=== PATIENT | male | born 1960 | race Caucasian/White ===

== ENCOUNTER 2022-07-30 13:24 | Emergency (ER) | payer MEDICARE, MEDICAID ==
[~2022-07-30] VITALS: Ht 188 cm; Wt 100.0 kg
[~2022-07-30 13:24] MED LIST: LISI-222 PO; METF500T PO
[2022-07-30 13:32] VITALS: BP 143/86
== END 2022-07-30 14:54 | disposition home or self-care (01) ==
LOC: ER 13:25
DX: F15.10 Other stimulant abuse, uncomplicated; I10 Essential (primary) hypertension; E11.9 Type 2 diabetes mellitus without complications
CPT/HCPCS: 82948; 99283

== ENCOUNTER 2023-02-08 20:27 | Inpatient (IN) | payer MEDICARE, MEDICAID ==
[~2023-02-08] VITALS: Ht 188 cm; Wt 100.0 kg
[2023-02-08] MEDS ORDERED: albuterol 2.5 MG/3 ML nebule NEB ONE ×2 (20:40→21:00)
[2023-02-08] MEDS ORDERED: normal saline 1000ml 1,000 ML IV ONE ×3 (20:40)
[2023-02-08] MEDS ORDERED: methylPREDNISolone sod succ 125mg/2ml vial IV ONE (21:00)
[2023-02-08 21:05] LABS: ABG BASE EXCESS -4.6 mmol/L (-2.0-2.0); ABG HCO3 15.6 mmol/L (22.0-26.0); ABG OXYGEN SATURATION 97.2 % (94-97); ABG PO2 (T) 89.2 mmHg (75.0-100.0); FCOHb 2.9 % (0.0-3.9); FMetHb 0.2 % (0.0-1.5); FO2Hb 94.2 % (94-97); PATIENT TEMPERATURE 36.7; TOTAL HEMOGLOBIN 11.6 G/dl (14.0-17.9)
[2023-02-08] MEDS ORDERED: azithromycin/NS 500mg/250ml 250 ML IV ONE (21:05)
[2023-02-08] MEDS ORDERED: CefTRIAXone 2gm/D5W 50ml BAG 50 ML IV ONE (21:05)
[2023-02-08] MEDS ORDERED: insulin Lispro (HumaLOG) vial - multi-dose SQ STA (21:10)
[2023-02-08 21:11] LABS: BASOPHILS % (AUTO) 0.1 % (0-1); EOSINOPHILS # (AUTO) 0.2 X10'3 (0-0.9); EOSINOPHILS % (AUTO) 0.8 % (0-6); HEMATOCRIT 35.6 % (42.0-52.0); LYMPHOCYTES # (AUTO) 1.6 X10'3 (1.1-4.8); LYMPHOCYTES % (AUTO) 7.4 % (21-51); MEAN CORPUSCULAR HEMOGLOBIN 31.7 PG (27.0-31.0); MEAN CORPUSCULAR HGB CONC 33.6 g/dL (33.0-36.5); MEAN CORPUSCULAR VOLUME 94.3 FL (78-98); MEAN PLATELET VOLUME 7.6 FL (7.4-10.4); MONOCYTES # (AUTO) 1.4 X10'3 (0-0.9); MONOCYTES % (AUTO) 6.4 % (2-12); NEUTROPHILS # (AUTO) 18.8 X10'3 (1.8-7.7); NEUTROPHILS % (AUTO) 85.3 % (42-75); PLATELET COUNT 286 X10'3 (140-440); RED BLOOD COUNT 3.78 X10'6 (4.70-6.10); RED CELL DISTRIBUTION WIDTH 13.9 % (11.5-14.5)
[2023-02-08 21:26] LABS: ALANINE AMINOTRANSFERASE 21 U/L (12-78); ALBUMIN 3.1 G/DL (3.4-5.0); ALBUMIN/GLOBULIN RATIO 1.1 (1.1-1.5); ALKALINE PHOSPHATASE 91 IU/L (46-116); ANION GAP 11 (8-16); ASPARTATE AMINO TRANSFERASE 9 U/L (10-37); BILIRUBIN,TOTAL 0.8 MG/DL (0.1-1.0); BLOOD UREA NITROGEN 31 MG/DL (7-18); CALCIUM 8.2 MG/DL (8.5-10.1); CHLORIDE 96 MMOL/L (99-107); CREATININE 1.72 MG/DL (0.60-1.10); GLUCOSE 331 MG/DL (70-104); LIPASE < 50 U/L (73-393); POTASSIUM 4.3 MMOL/L (3.5-5.1); SODIUM 129 MMOL/L (135-145); TOTAL CARBON DIOXIDE 22.3 MMOL/L (24-32); eGFR 41 ML/MIN
[2023-02-08 21:28] LABS: CLARITY,URINE SLIGHTLY CLOUDY (Clear); COLOR,URINE YELLOW (Yellow); GLUCOSE, URINE >=1000 mg/dl (Neg); KETONES,URINE NEGATIVE (Neg); LEUKOCYTE ESTERASE ,URINE SMALL (Neg); NITRITES, URINE NEGATIVE (Neg); OCCULT BLOOD,URINE TRACE-INTACT (Neg); PH,URINE 5.5 (4.8-8.0); PROTEIN,URINE NEGATIVE (Neg); UROBILINOGEN,URINE 0.2 E.U/dL (0.2-1.0)
[2023-02-08 21:28] LABS: ETHANOL < 0.010 GM/DL (0.0-0.010)
[2023-02-08 21:34] LABS: UA COLLECTION TYPE CLN CATCH MIDSTREAM
[2023-02-08 21:39] LABS: BACTERIA,URINE 2+ /HPF (Neg); SQUAMOUS EPITHELIAL CELL,UR FEW /LPF (FEW); TRANSITIONAL EPI CELLS,URINE FEW /HPF; WBC CLUMPS,URINE MODERATE /HPF (NEGATIVE); WBC,URINE 30-50 /HPF (0-4); YEAST FEW /HPF (NEGATIVE)
[2023-02-08 21:43] LABS: URINE AMPHETAMINE SCREEN POSITIVE (Neg); URINE BARBITUATE SCREEN NEGATIVE (Neg); URINE BENZODIAZEPINES SCREEN NEGATIVE (Neg); URINE CANNABINOID SCREEN POSITIVE (Neg); URINE COCAINE SCREEN NEGATIVE (Neg); URINE METHADONE SCREEN NEGATIVE (Neg); URINE OPIATE SCREEN NEGATIVE (Neg); URINE PHENCYCLIDINE SCREEN NEGATIVE (Neg)
--- NOTE | 2023-02-08 21:53 | NUR ---
PTS ALEJANDRA [phone]
[2023-02-09] MEDS ORDERED: metoclopramide 5 mg/ml inj IV PRN
[2023-02-09] MEDS ORDERED: HYDROcodone/acetaminophen 5mg/325mg tablet PO PRN
[2023-02-09] MEDS ORDERED: magnesium hydroxide 30ml (MOM) UD suspension PO PRN
[2023-02-09] MEDS ORDERED: bisacodyl 10mg suppository rectal RC PRN
[2023-02-09] MEDS ORDERED: diphenhydrAMINE 25mg capsule PO PRN
[2023-02-09] MEDS ORDERED: mag hydrox/Alum hydrox/simeth 30ml oral suspension PO PRN
[2023-02-09] MEDS ORDERED: ondansetron/PF 4mg/2ml inj IV PRN
[2023-02-09] MEDS ORDERED: diphenhydrAMINE 50 mg/ml inj IV PRN
[2023-02-09] MEDS ORDERED: acetaminophen 325mg tablet PO PRN ×2
[2023-02-09] MEDS ORDERED: morphine 2 MG/ML inj. syringe IV PRN ×2
[2023-02-09] MEDS ORDERED: ondansetron 4mg rapidly disintigrating tab PO PRN
[2023-02-09] MEDS ORDERED: HYDROcodone/acetaminophen 10/325mg tab PO PRN
[2023-02-09] MEDS ORDERED: acetaminophen 650mg rectal suppository RC PRN
[2023-02-09] MEDS ORDERED: dextrose 50%-water 50ml dispensing syringe IV PRN ×2 (00:10)
[2023-02-09] MEDS ORDERED: glucagon, human recombinant 1mg kit SUBCUT PRN (00:10)
[2023-02-09] MEDS ORDERED: MESSAGE TO PHARMACY PO ONE (00:10)
[2023-02-09] MEDS ORDERED: DEXTROSE 15 GM of carb/4 tabs (each vial/BOTTLE has 4 tablets) PO PRN ×2 (00:10)
[2023-02-09] MEDS: normal saline 1000ml 1,000 ML IV SCH ×3 (00:13→17:50)
[2023-02-09 00:40] LABS: APTT 30 SECONDS (22-32)
[2023-02-09 00:52] LABS: D-DIMER 0.37 MG/L FEU (0-0.50)
[2023-02-09 00:56] LABS: HEMOGLOBIN A1C 11.4 % (4.5-6.2)
[2023-02-09 00:58] LABS: CREATINE KINASE 82 U/L (39-308); MAGNESIUM 1.4 MG/DL (1.5-2.4); PHOSPHORUS 2.7 MG/DL (2.3-4.5)
[2023-02-09 07:28] VITALS: BP 134/79
[2023-02-09] MEDS: nicotine 21mg patch - 24 hr TD SCH (07:36)
[2023-02-09] MEDS: pantoprazole 40mg Tablet.DR PO SCH (07:36)
[2023-02-09] MEDS: heparin, porcine 5000 units/ml vial SQ SCH ×2 (07:37→20:00)
[2023-02-09] MEDS: docusate sod 100mg capsule PO SCH ×2 (08:00→20:00)
[2023-02-09] MEDS: CefTRIAXone/D5W-Rocephin 1gm 50 ML IV SCH (08:19)
[2023-02-09] MEDS ORDERED: potassium Cl 20 mEq SR tablet PO PRN ×2 (08:35)
[2023-02-09] MEDS ORDERED: magnesium 4gm in 100ml NS 100 ML IV PRN (08:35)
[2023-02-09] MEDS ORDERED: potassium Cl 40MEQ/1/2NS 520ml 520 ML IV PRN (08:35)
[2023-02-09] MEDS ORDERED: magnesium 2GM in 50ml NS 50 ML IV PRN (08:35)
[2023-02-09 09:10] LABS: CHOL/HDL RATIO 3.8 (0.00-4.99); CHOLESTEROL 146 MG/DL (0-200); HDL CHOLESTEROL 38 MG/DL (35-60); LDL CHOLESTEROL 82 MG/DL (50-100); TRIGLYCERIDES 127 MG/DL (20-135)
[2023-02-09] MEDS: azithromycin/NS 500mg/250ml 250 ML IV SCH (09:23)
[2023-02-09] MEDS: insulin Lispro (HumaLOG) vial - multi-dose SQ SCH ×3 (09:27→19:25)
[2023-02-09 10:00] VITALS: BP 141/80
[2023-02-09] MEDS: magnesium Cl slow-release 64mg tablet PO PRN (13:12)
[2023-02-09] MEDS ORDERED: CHOL20003 PO (13:40)
[2023-02-09] MEDS ORDERED: INSU100V12 SQ (13:40)
[2023-02-09] MEDS ORDERED: UMEC62.5 PO (13:40)
[2023-02-09] MEDS ORDERED: TRAZ-251 PO ×2 (13:40→14:48)
[2023-02-09] MEDS ORDERED: ALBU2.5V10 PO (13:40)
--- NOTE | 2023-02-09 14:13 | NUR ---
DM consult: Per EMR pt with T2DM, current A1c 11.4% with BG 348 mg/dL on admit. Per physician notes pt states he has been without insulin for two days and has been unable to keep his blood sugars below 300. Multiple attempted visits with pt at bedside however pt unavailable. Will f/u at another time for DM education. Pt admit for sepsis, UTI, hyperglycemia, acute renal failure with hyponatremia, acute pneumonitis, and acute amphetamine intoxication. Pt on a CHO controlled diet and eating well, documented with 100% PO intake of first meal. Estimated nutrient needs will not be met even if pt continues with 100% PO intake given restrictive diet order. D/w dietary to send double eggs WB and double meat BIDLD for satiety and to assist with meeting estimated nutrient needs. LBM 02/09 per EMR. Will continue to follow and monitor need for further nutrition intervention. Recommendations: 1) Continue CHO controlled diet 2) Double eggs WB; double meat BIDLD 3) Bowel care per rx 4) Scaled weight this admit; subsequent weekly scaled weights 5) DM education as able, A1c 11.4%, BG 348 mg/dL on admit Addendum: 02/09/23 at [address] Amended: Links added.
[2023-02-09] MEDS ORDERED: FLO0.4C PO (14:48)
[2023-02-09] MEDS ORDERED: ALBU8HFA PO (14:48)
[2023-02-09 18:00] VITALS: BP 113/63
--- NOTE | 2023-02-09 18:29 | NUR ---
pt refused 2 rn skin check. cupola charger notified
--- NOTE | 2023-02-09 18:30 | NUR ---
Patient in room [facility] 4022. I have received report from DARRON CAM and had the opportunity to ask questions and assume patient care.
[2023-02-09] MEDS: K and/or MAG REPLACEMENT MC SCH (20:00)
[2023-02-09] MEDS: traZODone 50mg tablet PO SCH (20:39)
[2023-02-09] MEDS ORDERED: temazepam 15mg capsule PO PRN (21:00)
[2023-02-09] MEDS: insulin glargine (Lantus) pen - multi-dose SQ SCH (21:45)
[2023-02-09 22:00] VITALS: BP 138/72
[2023-02-10] MEDS: normal saline 1000ml 1,000 ML IV SCH ×2 (03:38→15:52)
[2023-02-10 04:40] LABS: BASOPHILS # (AUTO) 0.1 X10'3 (0-0.2); BASOPHILS % (AUTO) 0.3 % (0-1); EOSINOPHILS # (AUTO) 0.2 X10'3 (0-0.9); EOSINOPHILS % (AUTO) 0.9 % (0-6); HEMATOCRIT 32.5 % (42.0-52.0); LYMPHOCYTES # (AUTO) 2.2 X10'3 (1.1-4.8); LYMPHOCYTES % (AUTO) 11.1 % (21-51); MEAN CORPUSCULAR HEMOGLOBIN 31.7 PG (27.0-31.0); MEAN CORPUSCULAR HGB CONC 33.7 g/dL (33.0-36.5); MEAN CORPUSCULAR VOLUME 94.1 FL (78-98); MEAN PLATELET VOLUME 8.4 FL (7.4-10.4); MONOCYTES # (AUTO) 1.2 X10'3 (0-0.9); MONOCYTES % (AUTO) 6.3 % (2-12); NEUTROPHILS % (AUTO) 81.4 % (42-75); PLATELET COUNT 289 X10'3 (140-440); RED BLOOD COUNT 3.45 X10'6 (4.70-6.10); RED CELL DISTRIBUTION WIDTH 14.1 % (11.5-14.5); WHITE BLOOD COUNT 19.6 X10'3 (4.5-11.0)
[2023-02-10 05:02] LABS: ALANINE AMINOTRANSFERASE 55 U/L (12-78); ALBUMIN 2.9 G/DL (3.4-5.0); ALBUMIN/GLOBULIN RATIO 0.9 (1.1-1.5); ALKALINE PHOSPHATASE 90 IU/L (46-116); ANION GAP 8 (8-16); ASPARTATE AMINO TRANSFERASE 19 U/L (10-37); BILIRUBIN,TOTAL 0.3 MG/DL (0.1-1.0); BLOOD UREA NITROGEN 27 MG/DL (7-18); BUN/CREATININE RATIO 24.8 (10.0-20.0); CALCIUM 8.5 MG/DL (8.5-10.1); CHLORIDE 106 MMOL/L (99-107); CHOL/HDL RATIO 3.7 (0.00-4.99); CHOLESTEROL 150 MG/DL (0-200); CREATININE 1.09 MG/DL (0.60-1.10); GLUCOSE 227 MG/DL (70-104); HDL CHOLESTEROL 41 MG/DL (35-60); LDL CHOLESTEROL 81 MG/DL (50-100); MAGNESIUM 1.5 MG/DL (1.5-2.4); PHOSPHORUS 1.9 MG/DL (2.3-4.5); POTASSIUM 4.1 MMOL/L (3.5-5.1); SODIUM 138 MMOL/L (135-145); TOTAL CARBON DIOXIDE 24.5 MMOL/L (24-32); TRIGLYCERIDES 90 MG/DL (20-135); eGFR 69 ML/MIN
[2023-02-10 06:00] VITALS: BP 130/68
--- NOTE | 2023-02-10 06:25 | NUR ---
Problems reprioritized. Patient report given, questions answered & plan of care reviewed with ELIE CAM.
--- NOTE | 2023-02-10 06:39 | NUR ---
Patient in room [facility]TH[facility] 4022. I have received report from Tammy Munoz and had the opportunity to ask questions and assume patient care.
[2023-02-10] MEDS: pantoprazole 40mg Tablet.DR PO SCH (07:30)
[2023-02-10] MEDS: heparin, porcine 5000 units/ml vial SQ SCH ×2 (08:00→20:32)
[2023-02-10] MEDS: docusate sod 100mg capsule PO SCH ×2 (08:00→20:27)
[2023-02-10] MEDS: K and/or MAG REPLACEMENT MC SCH ×2 (08:00→20:00)
[2023-02-10] MEDS: tamsulosin 0.4mg capsule PO SCH ×2 (08:14→20:27)
[2023-02-10] MEDS: CefTRIAXone/D5W-Rocephin 1gm 50 ML IV SCH (08:15)
[2023-02-10] MEDS: lisinopril 10 MG tablet PO SCH (08:15)
[2023-02-10] MEDS: nicotine 21mg patch - 24 hr TD SCH (08:19)
[2023-02-10] MEDS: insulin Lispro (HumaLOG) vial - multi-dose SQ SCH ×3 (08:37→19:07)
[2023-02-10] MEDS: azithromycin/NS 500mg/250ml 250 ML IV SCH (08:39)
[2023-02-10] MEDS ORDERED: ipratropium/albuterol 3ml nebule NEB PRN (08:50)
[2023-02-10 10:00] VITALS: BP 140/86
--- NOTE | 2023-02-10 10:06 | NUR ---
Notified Dr. Canseco of pt's refusal of heparin, protonix and colace.
--- NOTE | 2023-02-10 12:39 | NUR ---
DM consult: Pt seen at bedside for written and verbal DM education. Pt states he has a physician that he sees for DM management however has not seen her in some time. Pt states he takes his DM medications per rx without issues despite inability to recall what the meds are and reports of being without insulin for two days per physician notes. Pt states he checks his blood sugars in the morning and evening with resulting numbers 450-500 mg/dL. Pt expresses desire to improve DM management to bring his A1c down to below 7.0%. All of patient's questions were answered at this time. Pt endorses a good appetite and states he would like to continue with double protein with meals. Pt denies food allergies. Pt reports difficulty chewing d/t missing teeth however declines texture modification. LBM 02/09 per EMR. Pt denies constipation or diarrhea. Pt provided with RD contact information and encouraged to reach out if needed. Will continue to follow. Addendum: 02/10/23 at [address] Amended: Links added.
[2023-02-10] MEDS ORDERED: potassium phosphate inj 30 MMOL in normal saline 500ml IV soln 500 ML IV ONE (14:00)
[2023-02-10 18:00] VITALS: BP 113/58
--- NOTE | 2023-02-10 18:11 | NUR ---
Problems reprioritized. Patient report given, questions answered & plan of care reviewed with
[2023-02-10] MEDS: traZODone 50mg tablet PO SCH (20:34)
[2023-02-10] MEDS: insulin glargine (Lantus) pen - multi-dose SQ SCH (20:51)
[2023-02-11] MEDS ORDERED: guaiFENesin 200mg/20mg codeine phos 10ml UD oral syrup PO PRN (02:05)
[2023-02-11 04:56] LABS: BASOPHILS # (AUTO) 0.1 X10'3 (0-0.2); BASOPHILS % (AUTO) 0.7 % (0-1); EOSINOPHILS # (AUTO) 0.4 X10'3 (0-0.9); EOSINOPHILS % (AUTO) 3.2 % (0-6); HEMATOCRIT 32.6 % (42.0-52.0); HEMOGLOBIN 10.9 g/dl (14.0-17.9); LYMPHOCYTES % (AUTO) 21.9 % (21-51); MEAN CORPUSCULAR HEMOGLOBIN 31.5 PG (27.0-31.0); MEAN CORPUSCULAR HGB CONC 33.5 g/dL (33.0-36.5); MEAN CORPUSCULAR VOLUME 93.8 FL (78-98); MEAN PLATELET VOLUME 8.1 FL (7.4-10.4); MONOCYTES # (AUTO) 0.9 X10'3 (0-0.9); MONOCYTES % (AUTO) 6.3 % (2-12); NEUTROPHILS # (AUTO) 9.2 X10'3 (1.8-7.7); NEUTROPHILS % (AUTO) 67.9 % (42-75); PLATELET COUNT 300 X10'3 (140-440); RED BLOOD COUNT 3.47 X10'6 (4.70-6.10); WHITE BLOOD COUNT 13.5 X10'3 (4.5-11.0)
[2023-02-11 04:59] LABS: ALANINE AMINOTRANSFERASE 45 U/L (12-78); ALBUMIN 2.7 G/DL (3.4-5.0); ALBUMIN/GLOBULIN RATIO 0.8 (1.1-1.5); ALKALINE PHOSPHATASE 82 IU/L (46-116); ANION GAP 9 (8-16); ASPARTATE AMINO TRANSFERASE 16 U/L (10-37); BILIRUBIN,TOTAL 0.3 MG/DL (0.1-1.0); BLOOD UREA NITROGEN 14 MG/DL (7-18); BUN/CREATININE RATIO 15.7 (10.0-20.0); CALCIUM 8.5 MG/DL (8.5-10.1); CHLORIDE 106 MMOL/L (99-107); CREATININE 0.89 MG/DL (0.60-1.10); GLUCOSE 176 MG/DL (70-104); MAGNESIUM 1.4 MG/DL (1.5-2.4); PHOSPHORUS 2.9 MG/DL (2.3-4.5); POTASSIUM 3.6 MMOL/L (3.5-5.1); SODIUM 140 MMOL/L (135-145); TOTAL PROTEIN 5.9 G/DL (6.4-8.2); eGFR 87 ML/MIN
[2023-02-11] MEDS: magnesium Cl slow-release 64mg tablet PO PRN (05:28)
[2023-02-11] MEDS: normal saline 1000ml 1,000 ML IV SCH ×2 (05:29→12:00)
--- NOTE | 2023-02-11 06:22 | NUR ---
AM LABS BACK AND PATIENT'S MAG IS 1.4 FIRST DOSE OF MG REPLMT GIVEN REPORT TO EARLY SHIFT RN
--- NOTE | 2023-02-11 06:55 | NUR ---
Patient in room [facility]TH[facility] 4022. I have received report from SANJEEV CAM and had the opportunity to ask questions and assume patient care.
[2023-02-11 07:55] LABS: TOTAL CELLS COUNTED 100
[2023-02-11 07:56] LABS: PLATELET ESTIMATE NORMAL; POIKILOCYTOSIS FEW
[2023-02-11] MEDS: CefTRIAXone/D5W-Rocephin 1gm 50 ML IV SCH (07:59)
[2023-02-11] MEDS: heparin, porcine 5000 units/ml vial SQ SCH (07:59)
[2023-02-11] MEDS: pantoprazole 40mg Tablet.DR PO SCH (07:59)
[2023-02-11] MEDS: azithromycin/NS 500mg/250ml 250 ML IV SCH (07:59)
[2023-02-11] MEDS: docusate sod 100mg capsule PO SCH (07:59)
[2023-02-11] MEDS: K and/or MAG REPLACEMENT MC SCH (08:00)
[2023-02-11] MEDS: tamsulosin 0.4mg capsule PO SCH (08:00)
[2023-02-11] MEDS: lisinopril 10 MG tablet PO SCH (08:03)
[2023-02-11] MEDS: nicotine 21mg patch - 24 hr TD SCH (08:04)
[2023-02-11] MEDS: insulin Lispro (HumaLOG) vial - multi-dose SQ SCH (09:10)
[2023-02-11] MEDS ORDERED: METF-1203 PO (13:17)
[2023-02-11] MEDS ORDERED: LEVO-65 PO (13:26)
[2023-02-11 14:47] VITALS: BP 113/73
--- NOTE | 2023-02-11 16:57 | NUR ---
PT. IV CANNULA WHOLE AND INTACT UPON REMOVAL, PT EDUCATED ON DIABETES AND FOOT CARE, SMOKING CESSATION, TO FOLLOW UP WITH PRIMARY CARE PROVIDER WITHIN 1 WEEK, AND TO TAKE ANTIBIOTICS UNTIL FULLY GONE. PT. LEFT WITH SPOUSE IN PRIVATE VEHICLE SAFELY.
--- NOTE | 2023-02-11 18:15 | NUR ---
Orientee documentation: I have reviewed all interventions, assessments performed and documented by Jignesh CAM . Orientee Administration: For this medication-pass time frame, all medication were reviewed, dispensed, administered and documented per hospital policy by Jignesh CAM.
[2023-02-12] MEDS ORDERED: azithromycin 250mg tablet PO SCH (08:00)
== END 2023-02-11 15:35 | disposition home or self-care (01) | DRG 871 ==
LOC: ER 20:27 → ED HOLD 02-09 00:07 → ORTHO 4S 02-09 06:50
PROVIDERS: ADMIT Family Medicine; ATTEND Family Medicine
DX: A41.9 Sepsis, unspecified organism (principal); J18.9 Pneumonia, unspecified organism; E87.1 Hypo-osmolality and hyponatremia; N39.0 Urinary tract infection, site not specified; N17.9 Acute kidney failure, unspecified; J44.1 Chronic obstructive pulmonary disease with (acute) exacerbation; J44.0 Chronic obstructive pulmonary disease with (acute) lower respiratory infection; D64.9 Anemia, unspecified; E11.22 Type 2 diabetes mellitus with diabetic chronic kidney disease; E86.1 Hypovolemia; E86.0 Dehydration; F15.129 Other stimulant abuse with intoxication, unspecified; Z20.822 Contact with and (suspected) exposure to COVID-19; E88.09 Other disorders of plasma-protein metabolism, not elsewhere classified; I12.9 Hypertensive chronic kidney disease with stage 1 through stage 4 chronic kidney disease, or unspecified chronic kidney disease; E83.39 Other disorders of phosphorus metabolism; F17.210 Nicotine dependence, cigarettes, uncomplicated; R65.20 Severe sepsis without septic shock; N18.9 Chronic kidney disease, unspecified; K74.60 Unspecified cirrhosis of liver; E11.65 Type 2 diabetes mellitus with hyperglycemia; F12.10 Cannabis abuse, uncomplicated; Z79.899 Other long term (current) drug therapy; Z79.84 Long term (current) use of oral hypoglycemic drugs
CPT/HCPCS: 36415; 36600; 71045; 80053; 80061; 80305; 80320; 81001; 82550; 82803; 82948; 83036; 83605; 83690; 83735; 83880; 84100; 84145; 84153; 84154; 84443; 84484; 85007; 85018; 85025; 85379; 85610; 85730; 87040; 87081; 87088; 87502; 87503; 87811; 94640; 94664; 94760; 99285; G0378; J0456; J0696; J1644; J1815; J2930; J3490; J7030; J7040

== ENCOUNTER 2025-03-25 15:00 | Day surgery (SDC) | payer MEDICARE, MEDICAID ==
[2025-03-25] VITALS (15 sets, daily range): BP systolic 92–153; BP diastolic 46–86; PULSE 70–92; RESP 12–20; TEMP 97.9–98.6; O2SAT 92–99
[~2025-03-25] VITALS: Ht 188 cm; Wt 96.3 kg
[~2025-03-25 15:00] MED LIST changes: +ALBU90AE INH; +ATOR20TA PO; +BUPR-344 PO; +DAPA5TAB PO; +DOXY-243 PO; +ERGO125018 PO; +FLO0.4C PO; +GABA-1405 PO; +HYDR-3965 PO; -LISI-222 PO; +LISI10TA27 PO; -METF500T PO; +MIRT-88 PO; +NICO-687 TOP; +OMEP40CA21 PO; +POLY17PO10 PO; +SEMA1PEN3 SUBCUT; +TRAZ-251 PO; +UMEC62.5 PO; +VENL150T3 PO; +[UNRECOGNIZED DRUG - OTHER] SQ
[2025-03-25] MEDS: ceFAZolin 2,000MG in D5W 50mL IV ONE (16:50)
[2025-03-25] MEDS: VANCOMYCIN/WATER FOR INJ (PEG) 1.5GM/300 ML IVPB IV ONE (16:55)
[2025-03-25] MEDS ORDERED: cloNIDine hcl/PF 100mcg/ml inj ONE (17:09)
[2025-03-25] MEDS ORDERED: HYDROmorphone/PF 0.2 MG/ML SYRINGE IV PRN ×2 (17:20)
[2025-03-25] MEDS ORDERED: hydrALAZINE 20mg/ml inj. IV PRN (17:20)
[2025-03-25] MEDS ORDERED: ondansetron/PF 4mg/2ml inj IV PRN (17:20)
[2025-03-25] MEDS: ringers solution, lacted 1,000 ML IV SCH ×2 (17:20→21:28)
[2025-03-25] MEDS ORDERED: labetalol 20mg/4ml (5mg/ml) syringe IV PRN (17:20)
[2025-03-25] MEDS ORDERED: morphine 4 MG/ML inj SYRINge IV PRN (17:20)
[2025-03-25] MEDS ORDERED: acetaminophen 1,000mg/100ml IV 100 ML IV PRN (17:20)
[2025-03-25] MEDS ORDERED: BUPIVAcaine/PF 2.5mg/ml (0.25%) 10ml vial ONE (17:37)
[2025-03-25] MEDS ORDERED: bacitracin 15gm ointment TP ONE (17:37)
[2025-03-25] MEDS ORDERED: fentaNYL/PF 50MCG/1 ML 2ML syringe ONE (17:48)
[2025-03-25] MEDS ORDERED: midazolam 1 mg/ML 2ml injection ONE (17:49)
[2025-03-25] MEDS ORDERED: vancomycin 1,000mg inj ONE ×2 (18:25→19:38)
[2025-03-25] MEDS ORDERED: ROPIVAcaine 0.5% (5mg/ml) 30ml vial ONE (18:29)
[2025-03-25] MEDS ORDERED: 0.9 % SODIUM CHLORIDE 10 ML VIAL ONE ×3 (18:29)
[2025-03-25] MEDS ORDERED: dexamethasone sod phosphate 4mg/ml inj. ONE (18:30)
[2025-03-25] MEDS ORDERED: LIDOcaine 2% (20mg/ml) 5ml vial ONE (18:30)
[2025-03-25] MEDS ORDERED: propofol inj 20 ML IV ONE (18:30)
--- NOTE | 2025-03-25 21:08 | CONSULTATION REPORT - RESIDENT ---
Consult Providers to CC Resident Creating Document: MARY PRICEFRANKLINSERGE GILMA CC: HAMILTON MORALES MD History of Present Illness Reason for Admit\Complaint: Ankle surgery History of Present Illness Patient is a 64-year-old male with a past medical history of severe ankle osteoarthritis, insulin-dependent type 2 diabetes mellitus, COPD, HTN, Depression, Insomnia, Neuropathy and BPH who was admitted to the hospital for a left ankle reconstruction surgery today. Patient has undergone five surgeries on his left ankle since May of last year by Dr. Bermudez, most recently on 03/18/2025 and today. Patient reports that initial surgery was due to severe osteoarthritis, and he has had several hardware complications since then. Today's surgery was uneventful and the patient is stable postop as well, currently he has no pain. He denies shortness of breath, chest pain, palpitations or any other subjective symptoms. Hospitalist team consulted for further inpatient management. Allergies: Coded Allergies: bee venom protein (honey bee) (Verified Allergy, Severe, 03/17/25) Home Medications Home Medications Active Miralax* (Polyethylene Glycol) 1 Packet Packet 1 Packet PO HS 10 Days Doxycycline Hyclate 100 Mg Tablet.dr 100 Mg PO BID 7 Days Reported Habitrol 21 MG Patch* (Nicotine) 1 Each Patch.td24 1 Patch TOP DAILY Lisinopril 10 Mg Tablet 1 Tab PO DAILY Venlafaxine HCl ER (Venlafaxine HCl) 150 Mg Tab.er.24 1 Tab PO DAILY Bupropion Xl (Bupropion HCl) 300 Mg Tab.er.24h 1 Tab PO DAILY [place] 5/325 MG (Acetaminophen/Hydrocodone Bitart) 5 Mg/325 Mg Tablet 1 Tab PO Q4H PRN Ozempic (Semaglutide) 1 Mg/0.75 Ml (4 Mg/3 Ml) Pen.injctr 0.5 Mg SUBCUT Q7D ON WEDNESDAYS [Long acting insulin] 32 Units SQ DAILY Proair Respiclick (Albuterol Sulfate) 90 Mcg Aer.pow.ba 1-2 Puffs INH Q4HPRN PRN Gabapentin 600 Mg Tablet 1 Tab PO TID Prilosec (Omeprazole) 40 Mg Capsule 1 Cap PO DAILY Vitamin D2 (Ergocalciferol (Vitamin D2)) 1,250 Mcg (71959 Unit) Capsule 1 Cap PO Q7D Mirtazapine 30 Mg Tablet 1 Tab PO HS Farxiga (Dapagliflozin Propanediol) 5 Mg Tablet 1 Tab PO DAILY Lipitor* (Atorvastatin Calcium) 20 Mg Tablet 1 Tablet PO HS Trazodone HCl 50 Mg Tablet 2 Tab PO HS Flomax (Tamsulosin HCl) 0.4 Mg Cap.sr.24h 0.4 Mg PO BID Incruse Ellipta (Umeclidinium [place]) 62.5 Mcg Blst.w.dev 1 Puffs PO DAILY Past Medical History Past Medical History Severe ankle osteoarthritis Insulin-dependent Type 2 diabetes mellitus COPD HTN Depression Insomnia Neuropathy BPH Past Surgical History Surgical History Comment Five podiatric procedures since May Family History Family History: Bladder disorder Sister FH: depression FATHER Past Social History Social History Comment Smoker, last cigarette one-week ago Denies alcohol illicit drug abuse. Past history of amphetamine abuse as per EMR Lives at home with his and son Wheelchair-bound secondary to bilateral severe ankle OA ROS ROS All systems were reviewed and found negative except for pertinent positives mentioned in HPI Exam Vitals: Vital Signs Date Time Temp Pulse Resp B/P (MAP) Pulse Ox O2 Delivery O2 Flow Rate FiO2 03/25/25 20:30 78 12 104/69 (81) 96 Nasal Cannula 2.0 03/25/25 19:47 98.8 General: General: awake, alert oriented to place, time, and person HEENT: No pallor present, no icterus, moist mucous membranes Neck: No masses and tenderness Resp: Unlabored. Prolonged expiratory phase, scattered wheezes throughout Chest: Normal expansion Cardiovascular: Regular Rate and rhythm, normal S1 and S2 without murmur, rub or gallop Abdomen: Soft and nontender, no organomegaly, no guarding and rigidity, bowel sounds present Neuro: No focal weakness in the upper and lower limb muscles, power of the muscles 5/5 bilateral upper and lower extremities, normal reflexes bilaterally. Cranial nerves intact Extremities: Left ankle covered with clean dressing. Good capillary refill. No cyanosis,clubbing or edema Skin: Warm and Dry. No lesions Psych: Normal affect Additional Plan Multiple left ankle reconstruction surgeries POD 0 Severe left ankle osteoarthritis Hemodynamically stable and recovering well from surgery Continue pain control with Dilaudid and morphine DVT prophylaxis with heparin b.i.d. and SCDs Nonweightbearing. PT eval and treat for discharge planning Continue recommendations by Dr. Bermudez Insulin-dependent type 2 diabetes mellitus A1c from 08/13 is 6.8 Started the patient on hyperglycemia/hypoglycemia protocol Maintain blood glucose between 140-180 mg/dL Currently on liquid diet per Dr Bermudez, advance to 75 g carb controlled diet COPD, mild exacerbation Bilateral wheezing noted DuoNebsQ.2h PRN albuterol and q.4scheduled Nicotine use disorder: He has not smoked for one week Nicotine patch in place HTN Hyperlipidemia Continue lisinopril 10 mg daily, atorvastatin 20 mg daily Depression Insomnia Neuropathy Continue bupropion 200 mg daily, mirtazapine 30 mg daily, trazodone 100 mg HS, venlafaxine 150 mg daily BPH Continue Flomax Code Status: Full code DVT prophylaxis: Heparin Analgesia/sedation: Dilaudid/morphine Nutrition: Clear liquids per surgeon, advanced to carb controlled PT: Ordered Prognosis: Guarded Disposition: Continue care in surgical unit. Continue recommendations per ortho Serge Lawton MD Internal Medicine Resident PGY-2 Patient evaluated using HIPPA complaint AV device Agree with the plan as discussed with resident Hamilton Morales MD Date of Service: Mar 25, 2025 Billing Provider: HAMILTON MORALES MD, LEONARDO LUIS Mar 25, 2025 21:08 HAMILTON MORALES MD Mar 26, 2025 01:26
[2025-03-25] MEDS ORDERED: HYDROcodone/acetaminophen 5mg/325mg tablet PO PRN (21:35)
[2025-03-25] MEDS: nicotine 21mg patch - 24 hr TD SCH (21:55)
[2025-03-25] MEDS ORDERED: ipratropium/albuterol 3ml nebule NEB PRN (22:00)
[2025-03-25] MEDS ORDERED: DEXTROSE 15 GM of carb/4 tabs (each vial/BOTTLE has 4 tablets) PO PRN ×2 (22:00)
[2025-03-25] MEDS ORDERED: glucagon, human recombinant 1mg kit SUBCUT PRN (22:00)
[2025-03-25] MEDS ORDERED: dextrose 50%-water 50ml dispensing syringe IV PRN ×2 (22:00)
[2025-03-26] VITALS (7 sets, daily range): BP systolic 64–142; BP diastolic 37–56; PULSE 65–83; RESP 16–21; TEMP 97.2–98.1; O2SAT 93–94
[2025-03-26] MEDS: ceFAZolin/D5W- 1GM premix 50 ML IV SCH (00:20)
[2025-03-26] MEDS: heparin, porcine 5000 units/ml vial SQ SCH (02:20)
[2025-03-26 04:52] LABS: MEAN PLATELET VOLUME 6.7 FL (7.4-10.4); RED CELL DISTRIBUTION WIDTH 21.1 % (11.5-14.5)
[2025-03-26 05:21] LABS: CREATININE 1.13 MG/DL (0.60-1.10); TOTAL CARBON DIOXIDE 27.3 MMOL/L (24-32); eCRCL 78 ML/MIN; eGFR 66 ML/MIN
[2025-03-26] MEDS: BUPROPION HCL 150MG XL 24 HR 150 MG TAB PO SCH (07:13)
[2025-03-26] MEDS: pantoprazole 40mg Tablet.DR PO SCH (07:14)
[2025-03-26] MEDS: venlafaxine XR 75mg capsule (Q24H) PO SCH (07:14)
[2025-03-26] MEDS: HYDROcodone/acetaminophen 10/325mg tab PO PRN (07:16)
--- NOTE | 2025-03-26 07:27 | PROGRESS NOTE ---
Ortho Clinic Progress Note History of Present Illness Allergies: Coded Allergies: bee venom protein (honey bee) (Verified Allergy, Severe, 03/17/25) Social History Smoking: Cigarettes Alcohol Use: Occasionally Drug Use: None Pain Pain Present: Yes Non-Verbal Pain Scale Used: 7-10 Severe Verbalized Pain Intensity: 0 Location Location Modifier: Left Pain Location: Leg Subjective Mr. Espinoza is now s/p L ex fix removal, Tibiocalcaneal arthrodesis (DOS: 03/25/2025). States he is doing otherwise well today with pain well controlled. Denies n/v/f/c/cp/sob. Objective Vital Signs Date Time Temp Pulse Resp B/P (MAP) Pulse Ox O2 Delivery O2 Flow Rate FiO2 03/26/25 06:50 98.1 81 17 98/52 (67) 94 Room Air 03/26/25 04:26 0 21 Alert and Oreinted x4, Vital signs are stable, In no acute distress, Dressing clean and dry, Wound clean and dry, Distal neurovasc intact, Calves: soft bilaterally Lab Results: 03/26/25 0433 03/26/25 0433 Problem\Assessment\Plan Plan: -Doing otherwise well postoperatively. No further surgical plans this admission and stable for discharge pending medicine evaluation. -Will continue to follow bone and soft tissue cultures from tibia as well as gross pathology. -NWB to the LLE -PT to eval -Plan discussed with Dr. Bermudez. GÉNESIS CARDENAS DPM Mar 26, 2025 07:27
[2025-03-26] MEDS: INSULIN LISPRO 100 UNIT/ML INSULN.PEN MULTI-DOSE SQ SCH (07:49)
--- NOTE | 2025-03-26 18:02 | DISCHARGE SUMMARY ---
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 Hospital Course DATE OF ADMISSION: 03/25/2025 DATE OF DISCHARGE: 03/26/2025 Discharge Diagnosis\\Comment: Severe left ankle osteoarthritis, insulin-dependent diabetes mellitus type 2, C OPD with mild exacerbation, nicotine use disorder, hypertension, hyperlipidemia, depression, peripheral neuropathy, BPH Operations\\Procedures: Left ankle reconstruction Consultants: Hospitalist service Complications: None Condition on DC: Stable Continued Medications: Albuterol Sulfate (Proair Respiclick) 90 Mcg Aer.pow.ba 1-2 PUFFS INH Q4HPRN PRN for shortness of breath Atorvastatin Calcium* (Lipitor*) 20 Mg Tablet 1 TABLET PO HS Bupropion XL (Bupropion Xl) 300 Mg Tab.er.24h 1 TAB PO DAILY Dapagliflozin Propanediol (Farxiga) 5 Mg Tablet 1 TAB PO DAILY Ergocalciferol (Vitamin D2) (Vitamin D2) 1,250 Mcg (47770 Unit) Capsule 1 CAP PO Q7D Gabapentin (Gabapentin) 600 Mg Tablet 1 TAB PO TID Hydrocodone Bit/Acetaminophen 5/325 MG ([place] 5/325 MG) 5 Mg/325 Mg Tablet 1 TAB PO Q4H PRN for pain [Long acting insulin] () 32 UNITS SQ DAILY Mirtazapine (Mirtazapine) 30 Mg Tablet 1 TAB PO HS Nicotine 21 MG Patch* (Habitrol 21 MG Patch*) 1 Each Patch.td24 1 PATCH TOP DAILY for smoking cessation Omeprazole (Prilosec) 40 Mg Capsule 1 CAP PO DAILY Polyethylene Glycol 3350* (Miralax*) 1 Packet Packet 1 PACKET PO HS for 10 Days, #10 PACKET Semaglutide (Ozempic) 1 Mg/0.75 Ml (4 Mg/3 Ml) Pen.injctr 0.5 MG SUBCUT Q7D ON WEDNESDAYS Tamsulosin Hcl (Flomax) 0.4 Mg Cap.sr.24h 0.4 MG PO BID, CAP.SR Trazodone HCl (Trazodone HCl) 50 Mg Tablet 2 TAB PO HS Umeclidinium Rub[place] (Incruse Ellipta) 62.5 Mcg Blst.w.dev 1 PUFFS PO DAILY Venlafaxine HCl (Venlafaxine HCl ER) 150 Mg Tab.er.24 1 TAB PO DAILY Discontinued Medications: Doxycycline Hyclate (Doxycycline Hyclate) 100 Mg Tablet. 100 MG PO BID for 7 Days, #14 TAB Lisinopril (Lisinopril) 10 Mg Tablet 1 TAB PO DAILY Discharge Summary: The patient was admitted by resident physician Dr. TITI DILLARD under the supervision of ASIA Tenorio MD with the following HPI:"Patient is a 64-year-old male with a past medical history of severe ankle osteoarthritis, insulin-dependent type 2 diabetes mellitus, COPD, HTN, Depression, Insomnia, Neuropathy and BPH who was admitted to the hospital for a left ankle reconstruction surgery today. Patient has undergone five surgeries on his left ankle since May of last year by Dr. Bermudez, most recently on 03/18/2025 and today. Patient reports that initial surgery was due to severe osteoarthritis, and he has had several hardware complications since then. Today's surgery was uneventful and the patient is stable postop as well, currently he has no pain. He denies shortness of breath, chest pain, palpitations or any other subjective symptoms. Hospitalist team consulted for further inpatient management." I rounded on the patient the following morning and the patient informed me that Dr. Bermudez had cleared him to be discharged and then he did not want to work with physical therapy even though the sports physiotherapist fellow's note Dr. Muñoz mentions physical therapy eval. Personally spoke with a Dr. Bermudez who did confirmed that the patient is cleared to be discharged. The patient is mildly elevated serum potassium level 5.3 the patient is on lisinopril which is to be discontinued from multifactorial reasons including the hyperkalemia and low normal blood pressure I recommended the patient recheck a metabolic panel in one-week. The patient has insulin-dependent diabetes mellitus in his blood sugars were uncontrolled during hospitalization except for stopping lisinopril rest the patient's home medications were continued. The patient is blood pressure is under acceptable control during hospitalization. Gen. No acute distress alert and oriented 4 Lungs clear to ascultation bilaterally, no wheezes rales or rhonchi appreciated Heart normal sinus rhythm no murmurs rubs or clicks noted Abdomen soft nontender bowel sounds are normoactive Lower extremities no clubbing cyanosis, nor edema appreciated the right, The patient felt ready to be discharged and was medically cleared to be discharged on 03/26/2025 The patient was seen and evaluated on day of discharge. Time spent on discharge 35 minutes The patient recovered sooner than to be expected with ankle reconstructive surgery *Problems/Diagnosis: (1) Hyperkalemia Total Time Spent on D/C: > 30 Minutes Date of Service: Mar 26, 2025 Billing Provider: BRANDON HALL DO Common Visit Codes: 89090-TZB/OBS DISCH DAY >30min BRANDON HALL DO Mar 26, 2025 18:02
[2025-03-26] MEDS ORDERED: insulin glargine (Lantus) pen - multi-dose SQ SCH (21:00)
--- NOTE | 2025-03-27 11:47 | PATHOLOGY REPORT ---
[facility] [address] [place] [address] SURGICAL PATHOLOGY REPORT CaseNumber: [id number] Surgeon:Tano Bermudez M.D. CLINICAL INFORMATION CLINICAL INFORMATION: Pain. DIAGNOSIS DIAGNOSIS: BONE, LEFT ANKLE; BIOPSY - CHRONIC FIBRO- REPARATIVE CHANGES, NON-SPECIFIC. MICROSCOPIC DESCRIPTION MICROSCOPIC DESCRIPTION: One slide is examined. Present is bone predominantly trabecular bone with as sociated soft tissue. There are chronic fibro-reparative changes and a detached piece of granulating tissue. The medullary spaces do not have a significant neutrophilic or plasma cell component. There i s new bone formation. These reparative changes suggest possible fracture repair. Please clinically a nd radiologically correlate. There is no neoplasia. GROSS DESCRIPTION GROSS DESCRIPTION: Received in a container of formalin labeled with the patient's name, number, and " left ankle bone" is a 1.8 cm aggregate of irregularly shaped pieces of allen bone. The specimen is enti rely submitted as A1 following decalcification. The time at which the specimen was removed was 1830. The time at which the specimen was placed in formalin was 1840. ([facility]) Electronically signed by: Siddharth Meyers M.D. 03/27/2025 11:16:00 AM
== END 2025-03-26 16:24 | disposition home or self-care (01) ==
LOC: PAS 15:00 → SUR 3N 18:52 → PAS 03-26 16:24
PROVIDERS: ATTEND Podiatrist Foot & Ankle Surgery
DX: T84.84XA Pain due to internal orthopedic prosthetic devices, implants and grafts, initial encounter (principal); M25.472 Effusion, left ankle; M25.372 Other instability, left ankle; M21.6X2 Other acquired deformities of left foot; M19.072 Primary osteoarthritis, left ankle and foot; M79.672 Pain in left foot; G89.18 Other acute postprocedural pain; I10 Essential (primary) hypertension; E11.9 Type 2 diabetes mellitus without complications; J44.9 Chronic obstructive pulmonary disease, unspecified; G47.30 Sleep apnea, unspecified; F41.9 Anxiety disorder, unspecified; F32.A Depression, unspecified; E66.9 Obesity, unspecified; I25.2 Old myocardial infarction; Z86.73 Personal history of transient ischemic attack (TIA), and cerebral infarction without residual deficits; Z87.891 Personal history of nicotine dependence; Z79.899 Other long term (current) drug therapy; Z68.27 Body mass index [BMI] 27.0-27.9, adult; Y79.2 Prosthetic and other implants, materials and accessory orthopedic devices associated with adverse incidents; Y92.89 Other specified places as the place of occurrence of the external cause
CPT/HCPCS: 20694; 27870; 36415; 38222; 64445; 64447; 73600; 80053; 82948; 85025; 87070; 87075; 87077; 87186; 88305; 88311; 94760; A4215; A4615; A4618; A6223; A6253; A6258; A6402; A6449; A7000; C1713; C1769; J0690; J0735; J1100; J1815; J2003; J2250; J2405; J2704; J2795; J3010; J3373; J7030; J7120; Z7506; Z7508; Z7512; Z7610; 76000; G0378; J3490

== ENCOUNTER 2025-04-30 13:33 | Emergency (ER) | payer MEDICARE, MEDICAID ==
[~2025-04-30] VITALS: Ht 188 cm; Wt 95.5 kg
[2025-04-30] VITALS (11 sets, daily range): BP systolic 82–114; BP diastolic 42–75; PULSE 79–85; RESP 14–21; TEMP 98.2; O2SAT 92–98
[~2025-04-30 13:33] MED LIST changes: -DOXY-243 PO; -LISI10TA27 PO; -POLY17PO10 PO
--- NOTE | 2025-04-30 14:20 | ELECTROCARDIOGRAPH REPORT ---
[facility] Test Date: 2025-04-30 Test Time: 14:18:53 Pat Name: MICHELLE ENCINAS Department: [facility]- Patient ID: [facility]-[id number] Room: Gender: M [employer]visor [employer]: : 1960 Requested By: JOVITA YOUNG Order Number: [id number] Reading MD: Measurements Intervals [place] Rate: 92 P: 76 ME: 175 QRS: -26 QRSD: 119 T: 81 QT: 345 QTc: 427 Interpretive Statements Sinus rhythm Nonspecific intraventricular conduction delay Borderline low voltage, extremity leads Baseline wander in lead(s) V2 Please click the below link to view image of tracing.
--- NOTE | 2025-04-30 14:29 | RADIOLOGY REPORT ---
CHEST RADIOGRAPH Indication: surgery- PT NOT FOLLOWING [facility] Technique: Single frontal view of the chest was obtained COMPARISON: None FINDINGS: Lines and Tubes: None Lungs: Subtle patchy opacity in the right lower lobe. Pleura: No effusion. No pneumothorax. Cardiomediastinal contours: Unremarkable Bones: Unremarkable IMPRESSION: Subtle patchy airspace opacity in the right lower lobe may represent atelectasis.
[2025-04-30 14:37] LABS: MEAN PLATELET VOLUME 6.9 FL (7.4-10.4); RED CELL DISTRIBUTION WIDTH 23.6 % (11.5-14.5)
[2025-04-30 14:55] LABS: CREATININE 1.32 MG/DL (0.60-1.10); TOTAL CARBON DIOXIDE 27.1 MMOL/L (24-32); eCRCL 67 ML/MIN; eGFR 55 ML/MIN
[2025-04-30 14:59] LABS: PLATELET ESTIMATE NORMAL
[2025-04-30 15:00] LABS: ELLIPTOCYTES FEW
--- NOTE | 2025-04-30 16:29 | Physician Documentation ---
History of Present Illness ~ Chief Complaint: Post-operative complication Stated Complaint: L FOOT PAIN REF FOR SURGERY; Time Seen by MD: 15:59 Primary Medical Doctor: Unable to recall Source: patient, family Mode of Arrival: POV, Wheelchair Exam Limitations: no limitations HPI Mr. Espinoza is a 64 y/o male with PMHx significant for severe left ankle osteoarthritis, insulin-dependent diabetes mellitus type 2, COPD with mild e xacerbation, nicotine use disorder, hypertension, hyperlipidemia, depression, peripheral neuropathy, BPH and multiple left ankle reconstructive surgery revisions for wound infections who presents to the ED per the recommendation of his Orthopedic Surgeon (Dr. Bermudez). He initially had surgery on the left ankle ~ 1 year ago and he has had multiple infections to the hardware. He was seen in clinic today and was directed to the ED with plans to begin evaluation and planning for operative intervention today. He is without additional complaints. Tetanus witin 5 years: Yes Medication Reconciliation Allergies: Coded Allergies: bee venom protein (honey bee) (Verified Allergy, Severe, 04/30/25) Scheduled Atorvastatin Calcium* (Lipitor*), 1 TABLET PO HS, (Reported) Bupropion XL (Bupropion Xl), 1 TAB PO DAILY, (Reported) Dapagliflozin Propanediol (Farxiga), 1 TAB PO DAILY, (Reported) Ergocalciferol (Vitamin D2) (Vitamin D2), 1 CAP PO Q7D, (Reported) Gabapentin (Gabapentin), 1 TAB PO TID, (Reported) Mirtazapine (Mirtazapine), 1 TAB PO HS, (Reported) Nicotine 21 MG Patch* (Habitrol 21 MG Patch*), 1 PATCH TOP DAILY, (Reported) Omeprazole (Prilosec), 1 CAP PO DAILY, (Reported) Semaglutide (Ozempic), 0.5 MG SUBCUT Q7D, (Reported) Tamsulosin Hcl (Flomax), 0.4 MG PO BID, (Reported) Trazodone HCl (Trazodone HCl), 2 TAB PO HS, (Reported) Umeclidinium [place] (Incruse Ellipta), 1 PUFFS PO DAILY, (Reported) Venlafaxine HCl (Venlafaxine HCl ER), 1 TAB PO DAILY, (Reported) [Long acting insulin], 32 UNITS SQ DAILY, (Reported) Scheduled PRN Albuterol Sulfate (Proair Respiclick), 1-2 PUFFS INH Q4HPRN PRN for shortness of breath, (Reported) Hydrocodone Bit/Acetaminophen 5/325 MG ([place] 5/325 MG), 1 TAB PO Q4H PRN for pain, (Reported) Past Medical History Past Medical History: Hypertension, Cirrohsis, Hepatitis C, Diabetes Past Surgical History: orthopedic surgeries, other Patient History: Bladder disorder Sister FH: depression FATHER Alcohol Use: Occasionally Drug Use: none Review of Systems All Other Systems at this time: Reviewed and Negative Physical Exam Vital Signs: RN Vital Signs have been reviewed: Yes, Temperature: 98.2, Source: Temporal, Heart Rate: 78, Respiratory Rate: 19, BP: 121/83, Pulse Oximetry: 94, Weight: 95.450 Oxygen Flow Rate: 0 General Appearance: alert, WD/WN, no apparent distress Head: normal inspection EENT: PERRL/EOMI Neck: non-tender Respiratory: lungs clear Chest: no accessory muscle use Cardiovascular: normal peripheral pulses Gastrointestinal: normal palpation Back: normal inspection Pelvis: normal Hips: normal inspection Legs: normal inspection Knees: normal inspection Ligaments: normal Ankles: normal inspection Ankle He has a cast to the LLE with a window that allows for evaluation of the left ankle. + warmth to touch and significant cellulitis. + purulent drainage. + TTP. Distal Function: no motor deficit Lymphatic: normal inspection Neurologic: oriented x4 Psychiatric: normal mood/affect Progress Results/Orders Results/Orders Orders - NAE MCCRARY MD Vancomycin*Pharmacy To Dose* (Vancomycin (04/30/25 16:25) Vancomycin 1250mg/Ns 250ml Bag (Vancomyc (04/30/25 20:00) Vital Signs 04/30/25 04/30/25 04/30/25 13:54 16:11 16:13 Temp 98.2 Pulse 95 78 Resp 15 19 B/P (MAP) 90/57 121/83 (96) Pulse Ox 93 94 O2 Flow Rate 0 0 Laboratory Tests Test 04/30/25 14:24 White Blood Count 11.1 H Red Blood Count 4.12 L Hemoglobin 9.9 L Hematocrit 31.2 L Mean Corpuscular Volume 75.8 L Mean Corpuscular Hemoglobin 24.1 L Mean Corpuscular Hemoglobin Concent 31.7 L Red Cell Distribution Width 23.6 H Platelet Count 432 Mean Platelet Volume 6.9 L Neutrophils (%) (Auto) 68.6 Lymphocytes (%) (Auto) 21.1 Monocytes (%) (Auto) 9.0 Eosinophils (%) (Auto) 0.9 Basophils (%) (Auto) 0.4 Neutrophils # (Auto) 7.6 Lymphocytes # (Auto) 2.3 Monocytes # (Auto) 1.0 H Eosinophils # (Auto) 0.1 Basophils # (Auto) 0.0 CBC Comment Platelet Estimate Normal Red Blood Cell Morphology Perf Hypochromasia 1+ Basophilic Stippling Anisocytosis 3+ Microcytosis 1+ Elliptocytes Few Sodium Level 133 L Potassium Level 4.2 Chloride Level 97 L Carbon Dioxide Level 27.1 Anion Gap 9 Blood Urea Nitrogen 21 H Creatinine 1.32 H Estimated GFR/1.73 m2 55 BUN/Creatinine Ratio 15.9 Glucose Level 136 H Lactic Acid Level 1.6 Calcium Level 9.3 Albumin 3.4 Procalcitonin 0.24 Chemistry Comments Medical Decision Making General Diff Dx:Considerations: Include: Fracture, Laceration, Malunion, Neurovascular injury, Open fracture, Ulcer Ankle Diff Dx:Considerations: Include: Abrasion, Arthritis, Nonunion, Open fracture, Osteomyelitis, Septic, Ulcer Toe Diff Dx:Considerations: Include: Cellulitis Additional Comment While here in the ED, he remained hemodynamically normal with ABC's intact and in NAD. He is afebrile and nontoxic. + cellulitis with associated purulent drainage from the left lateral malleolus. Cast in place. Will start IV antibiotics and plan is for surgery today. Will keep NPO pending surgery. Will admit. Departure Disposition: ADMITTED INPATIENT Admitted to Inpatient Unit: yes, to hospitalist, to surgeon Impression: Primary Impression: Wound infection Additional Impression: Cellulitis Condition: Stable Referrals: NO PRIMARY CARE PROVIDER (PCP) Education Educated: Patient, Family Educated regarding: diagnosis, treatment Signature Scribe Signature: N/A Attestation: N/A NAE MCCRARY MD Apr 30, 2025 16:29
[2025-04-30] MEDS ORDERED: VANCOMYCIN 2GM/400ML H20 (PEG) 400 ML IV ONE (16:50)
[2025-04-30] MEDS ORDERED: vancomycin 1,000mg inj ONE ×3 (17:42→19:27)
[2025-04-30] MEDS ORDERED: BUPIVAcaine 2.5mg/ml inj 50ml vial (contains preservative) ONE (17:42)
[2025-04-30] MEDS ORDERED: MIDAZolam 1 MG/ML 5ML VIAL ONE (18:31)
[2025-04-30] MEDS ORDERED: fentaNYL /PF 50mcg/ml 5ml ampule ONE (18:31)
[2025-04-30] MEDS ORDERED: dexamethasone sod phosphate 4mg/ml inj. ONE (18:42)
[2025-04-30] MEDS ORDERED: LIDOcaine 1%/PF 5ML 10 MG/ML VIAL ONE (18:42)
[2025-04-30] MEDS ORDERED: propofol inj 20 ML IV ONE (18:42)
[2025-04-30] MEDS ORDERED: ROPIVAcaine 0.5% (5mg/ml) 30ml vial ONE (18:42)
[2025-04-30] MEDS ORDERED: VANCOMYCIN/WATER FOR INJ (PEG) 1.5GM/300 ML IVPB IV ONE (19:00)
[2025-04-30] MEDS ORDERED: HYDROmorphone/PF 0.2 MG/ML SYRINGE IV PRN ×2 (19:20)
[2025-04-30] MEDS ORDERED: morphine 4 MG/ML inj SYRINge IV PRN ×2 (19:20)
[2025-04-30] MEDS ORDERED: fentaNYL/PF 50MCG/1 ML 2ML syringe IV PRN ×2 (19:20)
[2025-04-30] MEDS ORDERED: labetalol 20mg/4ml (5mg/ml) syringe IV PRN (19:20)
[2025-04-30] MEDS ORDERED: ondansetron/PF 4mg/2ml inj IV PRN (19:20)
[2025-04-30] MEDS ORDERED: ringers solution, lacted 1,000 ML IV SCH (19:20)
[2025-04-30] MEDS ORDERED: enalaprilat 1.25mg/ml 2ml vial IV PRN (19:20)
--- NOTE | 2025-04-30 19:24 | ANESTHESIA RECORDS ---
Nerve Block Providers to CC ~ Diagnosis: Nerve Block requested by: LYNN MEDINA DPDylan Neuraxial/Peripheral Nerve Block requested for Post-operative analgesia by Physician above DIAGNOSIS: Post-operative pain. (Body Area) Shoulder: [ ] Arm: [ ] Hand: [ ] Hip: [ ] Knee: [ ] Ankle: [ Left ] Foot: [ Left ] Leg: [ Left ] Abdomen: [ ] Other: [ ] Post-operative pain expected to be/is inadequately managed by oral or IV medicines. Regional anesthetic expected to facilitate rehabilitation and/or discharge from facility. Other:[ ] Time out Done?: Yes Time of Time out: 18:32 Procedure Details: PROCEDURE DETAILS: Risks, benefits and alternatives explained Informed consent obtained, and patient wishes to proceed Conscious sedation with indicated monitors Patient positioned, pertinent anatomy defined, sterile technique used Needle used: [ ] 3 1/8 inch Stimuplex Ultra 22ga [x ] 4 inch Stimuplex Ultra 20ga [ ] 6 inch Stimuplex Ultra 20ga [ ] 6 inch, Quikbloc over the needle catheter set 20ga [ ] 4 inch Quikbloc over the needle catheter set 20ga [ ]Other: [ ] Loss of twitch @ [____0.5 ]mA [x ] Single Injection [ ] Catheter Ultrasound Guidance Used: [x ] Yes [ ] No Attempts:[ once ] Medicines injected: [x ]Clonidine Amt:[ 70 mcgs ] [x ]Dexamethasone Amt:[____4 mgs ] [x ]Ropivacaine Amt:[ 0.5% 30 cc ] [ ]Bupivacaine Amt:[ ] [ ]Lidocaine Amt:[ ] [ ]Exparel 1.33%:[ ] [ ]Epinephrine Amt[ ] [ ]Other: [ ] Intermittent aspiration during local anesthetic administration No symptoms of intraneural or intravenous injection Patient tolerated procedure well Comments Left Popliteal fossa Block Pt in supine position with Left Leg flexed at 90 Degrees. Posterior approach. Ultrasound probe placed back of thigh 2 inches above the knee joint. Easy visualization of the Sciatic nerve. 1% xylocaine local anesthetic. Easy visualization of Spreading of local anesthetic anterior and posterior to the Sciatic nerve sub paraneurally inside sciatic nerve sheath. Meaningful conversation t throughout. No Pain or discomfort during injection. TRIPURANENI,ISMAEL MD Apr 30, 2025 19:24
[2025-04-30] MEDS ORDERED: VANCOmycin 1250MG/NS 250ml Bag 250 ML IV SCH (20:00)
== END 2025-04-30 22:04 | disposition home or self-care (01) ==
LOC: ER 13:33
DX: T81.49XA Infection following a procedure, other surgical site, initial encounter (principal); L03.116 Cellulitis of left lower limb; I10 Essential (primary) hypertension; E11.9 Type 2 diabetes mellitus without complications; Z72.89 Other problems related to lifestyle; Z98.890 Other specified postprocedural states; Z91.030 Bee allergy status; Z79.899 Other long term (current) drug therapy
CPT/HCPCS: 20680; 36415; 71045; 73600; 76000; 80048; 82948; 83605; 84145; 85008; 85025; 87040; 93005; 99285; A4215; A4618; A6223; A6402; A6449; A7000; C1713; C1769; J1100; J2250; J2704; J2795; J3010; J3373; J3490; J7030; J7120; Z7506; Z7508; Z7512; Z7610; 99284

== ENCOUNTER 2025-05-02 13:13 | Emergency (ER) | payer MEDICARE, MEDICAID ==
[~2025-05-02] VITALS: Ht 188 cm; Wt 102.0 kg
[2025-05-02 13:18] VITALS: TEMP 97.7
[2025-05-02 14:59] LABS: MEAN PLATELET VOLUME 6.8 FL (7.4-10.4); RED CELL DISTRIBUTION WIDTH 23.6 % (11.5-14.5)
[2025-05-02 15:02] LABS: CREATININE 0.93 MG/DL (0.60-1.10); TOTAL CARBON DIOXIDE 27.9 MMOL/L (24-32); eCRCL 95 ML/MIN; eGFR 82 ML/MIN
--- NOTE | 2025-05-02 15:25 | RADIOLOGY REPORT ---
CLINICAL INDICATION: ankle swelling TECHNIQUE: DI ANKLE, COMPLETE(3VW MIN), DI ANKLE,LIMITED (AP/LAT) Comparison: DI ANKLE,LIMITED (AP/LAT) on DOS: 04/30/25, DI ANKLE,LIMITED (AP/LAT) on DOS: 03/18/25 FINDINGS/IMPRESSION: : Postoperative changes of the ankle joint with resection of the distal fibula. Antibiotic beads are present in the surgical bed. Severe diffuse soft-tissue swelling and edema. Moderate volume subcutaneous emphysema in the ankle joint space may be postoperative.
--- NOTE | 2025-05-02 16:46 | Physician Documentation ---
History of Present Illness ~ Chief Complaint: Ankle pain Stated Complaint: POST OP COMPLICATIONS Time Seen by MD: 13:16 Primary Medical Doctor: Unable to recall HPI 64-year-old male history of multiple left ankle surgeries including external fixation which the patient removed himself ORIF which became infected followed by hardware removal last week and placement of antibiotic spacers he is presenting for drainage from his surgical site. He was placed in a walking boot and over the last several days his dressings have been saturated. This is an ongoing issue and nonacute. Patient feels that in his due to him being in a walking boot rather than a splint. He denies any fevers or chills. No purulent drainage or smell. Tetanus witin 5 years: Yes Medication Reconciliation Allergies: Coded Allergies: bee venom protein (honey bee) (Verified Allergy, Severe, 04/30/25) Scheduled Atorvastatin Calcium* (Lipitor*), 1 TABLET PO HS, (Reported) Bupropion XL (Bupropion Xl), 1 TAB PO DAILY, (Reported) Dapagliflozin Propanediol (Farxiga), 1 TAB PO DAILY, (Reported) Ergocalciferol (Vitamin D2) (Vitamin D2), 1 CAP PO Q7D, (Reported) Gabapentin (Gabapentin), 1 TAB PO TID, (Reported) Mirtazapine (Mirtazapine), 1 TAB PO HS, (Reported) Nicotine 21 MG Patch* (Habitrol 21 MG Patch*), 1 PATCH TOP DAILY, (Reported) Omeprazole (Prilosec), 1 CAP PO DAILY, (Reported) Semaglutide (Ozempic), 0.5 MG SUBCUT Q7D, (Reported) Tamsulosin Hcl (Flomax), 0.4 MG PO BID, (Reported) Trazodone HCl (Trazodone HCl), 2 TAB PO HS, (Reported) Umeclidinium [place] (Incruse Ellipta), 1 PUFFS PO DAILY, (Reported) Venlafaxine HCl (Venlafaxine HCl ER), 1 TAB PO DAILY, (Reported) [Long acting insulin], 32 UNITS SQ DAILY, (Reported) Scheduled PRN Albuterol Sulfate (Proair Respiclick), 1-2 PUFFS INH Q4HPRN PRN for shortness of breath, (Reported) Hydrocodone Bit/Acetaminophen 5/325 MG ([place] 5/325 MG), 1 TAB PO Q4H PRN for pain, (Reported) Past Medical History Past Medical History: Hypertension, Cirrohsis, Hepatitis C, Diabetes Past Surgical History: orthopedic surgeries, other Patient History: Bladder disorder Sister FH: depression FATHER Smoking Status: Current every day smoker Alcohol Use: Occasionally Drug Use: none Review of Systems All Other Systems at this time: Reviewed and Negative Physical Exam Vital Signs: RN Vital Signs have been reviewed: Yes, Temperature: 97.7, Source: Temporal, Heart Rate: 59, Respiratory Rate: 16, BP: 106/85, Pulse Oximetry: 95, Weight: 102.000 General Appearance Nontoxic no acute distress Awake alert oriented Skin pink warm dry well-perfused Lower extremity: Saturated dressing with pink discharge. No purulence. Surgical sutures/Incisions intact no erythema no purulence Progress Progress Note D/W Dr. De Luna podiatry who recounted history of chronic weeping, agrees with plan for splinting and outpatient follow up. Results/Orders Reviewed/noted all lab results: Yes Results/Orders Orders - ARIANE COHEN MD Ankle, Complete(3vw Min) (05/02/25 14:22) Completed Orders - ARIANE COHEN MD Ankle, Complete(3vw Min) (05/02/25 14:22) Cbc/Diff (05/02/25 14:22) BMP (05/02/25 14:22) Vital Signs 05/02/25 05/02/25 05/02/25 05/02/25 13:18 13:25 15:19 17:20 Temp 97.7 Pulse 68 60 59 69 Resp 20 15 16 18 B/P (MAP) 130/66 104/74 (84) 106/85 (92) 110/85 Pulse Ox 96 95 95 94 Laboratory Tests Test 05/02/25 14:41 White Blood Count 12.6 H Red Blood Count 3.79 L Hemoglobin 9.2 L Hematocrit 28.9 L Mean Corpuscular Volume 76.4 L Mean Corpuscular Hemoglobin 24.2 L Mean Corpuscular Hemoglobin Concent 31.6 L Red Cell Distribution Width 23.6 H Platelet Count 468 H Mean Platelet Volume 6.8 L Neutrophils (%) (Auto) 68.5 Lymphocytes (%) (Auto) 23.3 Monocytes (%) (Auto) 7.0 Eosinophils (%) (Auto) 0.8 Basophils (%) (Auto) 0.4 Neutrophils # (Auto) 8.6 H Lymphocytes # (Auto) 2.9 Monocytes # (Auto) 0.9 Eosinophils # (Auto) 0.1 Basophils # (Auto) 0.1 CBC Comment Sodium Level 137 Potassium Level 4.1 Chloride Level 102 Carbon Dioxide Level 27.9 Anion Gap 7 L Blood Urea Nitrogen 16 Creatinine 0.93 Estimated GFR/1.73 m2 82 BUN/Creatinine Ratio 17.2 Glucose Level 168 H Calcium Level 9.1 Albumin 3.0 L Chemistry Comments EKG/XRAY/CT/US/VASC/MRI Bone/Soft Tissue X-Ray (Ext.) : Additional Comment Left ankle x-ray independently interpreted shows subcutaneous swelling antibiotic spacers no osteomyelitis Departure Disposition: 01 HOME / SELF CARE / HOMELESS Impression: Primary Impression: Wound drainage Additional Impression Text 64-year-old male with chronic left lower extremity surgical issues with recent ORIF hardware removal last week with antibiotics spacer placement presenting for chronic wound weepage. The wound does not appear infected. I discussed with his hand or machine paster who agrees that this is a chronic issue nonacute 1. The patient did prefer to be splinted rather than in a walking boot which was obliged Additional Instructions: Follow up with your hand or machine paster. Return for fever or pus draining from the wound. Referrals: NO PRIMARY CARE PROVIDER (PCP) Signature Scribe Signature: na Attestation: ARIANE Biggs MD May 02, 2025 16:46
[2025-05-02 17:20] VITALS: BP 110/85; PULSE 69; RESP 18; O2SAT 94
== END 2025-05-02 17:21 | disposition home or self-care (01) ==
LOC: ER 13:14
DX: S90.912A Unspecified superficial injury of left ankle, initial encounter (principal); Z79.899 Other long term (current) drug therapy; X58.XXXA Exposure to other specified factors, initial encounter; Y93.89 Activity, other specified; Y92.89 Other specified places as the place of occurrence of the external cause; Y99.8 Other external cause status
CPT/HCPCS: 73610; 80048; 85025; 99284; A6446; A6449

== ENCOUNTER 2025-05-11 14:10 | Outpatient (CLI) | payer MEDICARE, MEDICAID ==
[~2025-05-11] VITALS: Ht 188 cm; Wt 99.8 kg
[2025-05-11 14:52] LABS: CREATININE 1.08 MG/DL (0.60-1.10); MEAN PLATELET VOLUME 6.4 FL (7.4-10.4); RED CELL DISTRIBUTION WIDTH 23.5 % (11.5-14.5); TOTAL CARBON DIOXIDE 26.9 MMOL/L (24-32); eGFR 69 ML/MIN
[2025-05-11 15:14] LABS: PLATELET ESTIMATE INCREASED
[2025-05-11 15:15] LABS: ELLIPTOCYTES FEW; LARGE PLATELETS FEW
[2025-05-18] MEDS ORDERED: OXYC10TA47 PO (08:17)
[2025-05-18] MEDS ORDERED: GABA300C PO (08:18)
[2025-05-18] MEDS ORDERED: INSU100I77 SQ (08:19)
[2025-05-18] MEDS ORDERED: METH36TA14 PO (11:26)
[2025-05-18] MEDS ORDERED: LISI10TA27 PO (11:27)
[2025-05-19] MEDS ORDERED: ceFAZolin 2gm/dext,iso 50mL 50 ML IV ONE (05:30)
[2025-05-19] MEDS ORDERED: ringers solution, lacted 1,000 ML IV SCH (05:30)
[2025-05-19] MEDS ORDERED: albuterol 2.5 MG/3 ML nebule NEB PRN (05:30)
[2025-05-19] MEDS ORDERED: VANCOMYCIN/H2O 1.5g/300mL PB 300 ML IV ONE (05:30)
[2025-05-19] MEDS ORDERED: ATOR-2 PO (11:19)
[2025-05-19] MEDS ORDERED: ASPI81TA52 PO (11:19)
[2025-05-19] MEDS ORDERED: CLOP-32 PO (11:19)
[2025-05-19] MEDS ORDERED: FER325T PO (11:22)
== END 2025-05-11 23:59 | disposition home or self-care (01) ==
LOC: PRE-OP 14:10 → EDSTATUS 05-19 14:00
PROVIDERS: ATTEND Orthopaedic Surgery
DX: J03.80 Acute tonsillitis due to other specified organisms (principal); M86.672 Other chronic osteomyelitis, left ankle and foot; E88.9 Metabolic disorder, unspecified; G63 Polyneuropathy in diseases classified elsewhere; M25.375 Other instability, left foot; T81.49XA Infection following a procedure, other surgical site, initial encounter; Z00.00 Encounter for general adult medical examination without abnormal findings
CPT/HCPCS: 36415; 80053; 83036; 85008; 85025